=== PATIENT | female | born 2000 | race Asian ===

== ENCOUNTER 2025-06-21 20:18 | Emergency (ER) | payer OTHER ==
[~2025-06-21] VITALS: Ht 172.7 cm; Wt 68.4 kg
[2025-06-21] MEDS ORDERED: CRAN500T4 PO (20:45)
[2025-06-21] MEDS: ACETAMINOPHEN 325 MG TAB PO ONE (21:44)
[2025-06-21 23:39] VITALS: BP 112/58; TEMP 98.2; O2SAT 98
== END 2025-06-21 23:40 | disposition home or self-care (01) ==
LOC: M ED 20:18
DX: S20.211A Contusion of right front wall of thorax, initial encounter (principal); Y92.9 Unspecified place or not applicable; Y93.9 Activity, unspecified; Y99.9 Unspecified external cause status; V49.50XA Passenger injured in collision with unspecified motor vehicles in traffic accident, initial encounter; F12.10 Cannabis abuse, uncomplicated; Z88.0 Allergy status to penicillin; Z91.018 Allergy to other foods